=== PATIENT | female | born 1960 | race Caucasian/White ===

== ENCOUNTER 2017-01-19 06:29 | Inpatient (IN) | payer OTHER ==
[2017-01-18 09:57] VITALS: BMI 28.2; BMI 30.2
[2017-01-19] VITALS (30 sets, daily range): BP systolic 92–120; BP diastolic 55–76; PULSE 56–100; RESP 13–22; Ht 167.6 cm; Wt 75.0 kg
[~2017-01-19] VITALS: Ht 167.6 cm; Wt 75.0 kg
[2017-01-19] MEDS ORDERED: FENTAnyl 50 MCG/ML VIAL IV PRN ×2 (06:30)
[2017-01-19] MEDS ORDERED: MEPERIDINE 25 MG INJ IV PRN (06:30)
[2017-01-19] MEDS ORDERED: morphine (1 MG/ML) 10ML SYRINGE IV PRN ×3 (06:30)
[2017-01-19] MEDS ORDERED: HYDROmorphONE (0.2 MG/ML) 10ML SYG IV PRN ×2 (06:30)
[2017-01-19] MEDS ORDERED: EPHEDrine SULFATE 50 MG/5 ML SYG IV PRN (06:30)
[2017-01-19] MEDS ORDERED: ATROPINE 1 MG/10 ML SYRINGE IV PRN (06:30)
[2017-01-19] MEDS ORDERED: DIPHENHYDRAMINE 50 MG INJ IV PRN (06:30)
[2017-01-19] MEDS ORDERED: LABETALOL HCL 20MG INJ IV PRN (06:30)
[2017-01-19] MEDS ORDERED: ONDANSETRON 4 MG INJ IV PRN (06:30)
[2017-01-19] MEDS ORDERED: OXYCODONE/ACETAMINOPHEN (5/325) TAB PO PRN ×2 (06:30)
[2017-01-19] MEDS ORDERED: hydrALAzine 20 MG INJ IV PRN (06:30)
[2017-01-19] MEDS ORDERED: MIDAZOLAM 1 MG/ML 2 ML INJ IV PRN (06:30)
[2017-01-19] MEDS ORDERED: SUGAMMADEX SODIUM 200 MG/2 ML VIAL IV ONE (07:00)
[2017-01-19] MEDS ORDERED: ATOR10TA65 PO (07:20)
[2017-01-19] MEDS ORDERED: GLYCOPYRROLATE 1 MG INJ ONE (08:39)
[2017-01-19] MEDS ORDERED: MIDAZOLAM 1 MG/ML 2 ML INJ ONE (08:39)
[2017-01-19] MEDS ORDERED: FENTAnyl 50 MCG/ML VIAL ONE ×2 (08:39→08:54)
[2017-01-19] MEDS ORDERED: ROCURONIUM 50 MG INJ ONE (08:39)
[2017-01-19] MEDS ORDERED: NEOSTIGMINE 3 MG/3 ML SYRINGE ONE (08:39)
[2017-01-19] MEDS ORDERED: LIDOCAINE 2% (SDV) 5 ML INJ ONE (08:39)
[2017-01-19] MEDS ORDERED: PROPOFOL 20 ML ONE (08:39)
[2017-01-19] MEDS ORDERED: ONDANSETRON 4 MG INJ ONE (08:40)
[2017-01-19] MEDS ORDERED: DEXAMETHASONE 4 MG/ML 1 ML INJ ONE (08:40)
[2017-01-19] MEDS ORDERED: BUPIVACAINE 0.5%/EPI (SDV) 10 ML INJ ONE (08:50)
[2017-01-19] MEDS ORDERED: BUPIVACAINE 0.25% (MPF) 30 ML INJ ONE (08:50)
[2017-01-19] MEDS ORDERED: THROMBIN 5000 UNIT VIAL ONE (08:50)
[2017-01-19] MEDS ORDERED: POLYMYXIN/BACITRACIN 1L IRRIG ONE (08:51)
[2017-01-19] MEDS ORDERED: CA CHLORIDE 10% 10 ML SYRINGE ONE (08:51)
[2017-01-19] MEDS ORDERED: IOHEXOL 300MG/ML 30 ML BTL ONE (08:57)
--- NOTE | 2017-01-19 09:39 | HPN ---
Date/Time of Note Date/Time of Note DATE: 01/19/17 TIME: 09:39 Interval H&P Admission Note Pt. seen H&P reviewed: No system changes GRACE CASTILLO MD Jan 19, 2017 09:39
[2017-01-19] MEDS ORDERED: CEFAZOLIN 1 GM/50 ML (PMX) 50 ML IVPB SCH (10:00)
[2017-01-19] MEDS ORDERED: DIPHENHYDRAMINE 25 MG CAP PO PRN (10:00)
[2017-01-19] MEDS ORDERED: HYDROCODONE/APAP (5/325) TAB PO PRN (10:00)
[2017-01-19] MEDS ORDERED: NALOXONE (0.4 MG/ML) INJ IV PRN (10:00)
[2017-01-19] MEDS ORDERED: MAGNESIUM HYDROXIDE 30ML CUP PO PRN (10:00)
[2017-01-19] MEDS ORDERED: HYDROmorphONE 1 MG/ML SYG IV PRN (10:00)
[2017-01-19] MEDS ORDERED: ACETAMINOPHEN 325 MG TAB PO PRN (10:00)
[2017-01-19] MEDS ORDERED: AL HYDROX/MG HYDROX/SIMETH 30 ML CUP PO PRN (10:00)
[2017-01-19] MEDS ORDERED: CEPASTAT LOZENGE MT PRN (10:00)
--- NOTE | 2017-01-19 12:06 | SIPON ---
Date/Time of Note Date/Time of Note DATE: 01/19/17 TIME: 12:02 Operative Report Preoperative Diagnosis right L5-S1 disc herniation Postoperative Diagnosis right L5-S1 disc herniation with incidental dural tear on the anterior aspect of the dural sac. Operation/Procedure Performed Right L5-S1 discectomy, dural tear augmentation Surgeon: GRACE CASTILLO MD Anesthesia Type: general Estimated Blood Loss: minimal Transfusion Required: no Specimens L5-S1 disc material Grafts/Implants [place] amniotic barrier, duragen, duraseal Complications Incidental dural tear encountered. Likely due to adhesion of disc herniation to the anterior aspect of the thecal sac. Was encountered during procedure. Augmented repair with duragen and duraseal. Location not amenable to suture repair. GRACE CASTILLO MD Jan 19, 2017 12:06
[2017-01-19] MEDS: HYDROmorphONE (0.2 MG/ML) 10ML SYG IV PRN ×3 (12:10→13:11)
[2017-01-19] MEDS: CEFAZOLIN 1 GM/50 ML (PMX) 50 ML IVPB SCH ×2 (12:47→21:51)
--- NOTE | 2017-01-19 13:58 | RADRPT ---
PROCEDURE: Intraoperative imaging of the lumbar spine with fluoroscopy. CLINICAL INDICATION: Back pain. Intraoperative. TECHNIQUE: 3 images of the lumbar spine were obtained in the operating room with an image intensif ier. No radiologist was in attendance. Fluoroscopy time is 4.8 seconds. COMPARISON: No prior study is available for comparison. FINDINGS: For the purposes of this report, the last apparent true disc level is considered to be L5-S1. Based on this, the posterior surgical instrument is present overlying the L5-S1 level. IMPRESSION: 1. Intraoperative imaging of the lumbar spine. RPTAT: QQ .Aric Hernandez MD, MD Date Time Electronically viewed and signed by .Aric Hernandez MD, on 01/19/2017 13:58 .R/
--- NOTE | 2017-01-19 14:25 | OPR ---
DATE OF OPERATION: 01/19/2017 PREOPERATIVE DIAGNOSIS: Right L5-S1 disk herniation. POSTOPERATIVE DIAGNOSES: 1. Right L5-S1 disk herniation. 2. Adhesion to the thecal sac with dural leak. OPERATION PERFORMED: 1. Right L5 laminectomy. 2. Right S1 laminectomy. 3. Right L5-S1 facet osteotomy. 4. Removal of extruded fragment underlying the thecal sac at the L5-S1 level. 5. Removal of disk material from within the disk space at the right L5-S1 level. 6. Decompression of the exiting L5 and traversing S1 nerve root. 7. Use of intraoperative microscope for microdissection. 8. Incidental dural leak found during the procedure due to adhesion of the extruded disk fragment to the anterior surface of the thecal sac. 9. Augmentation repair of the dural tear with DuraGen and DuraSeal to a watertight seal with Valsalva maneuver to evaluate. 10. Suture repair not possible due to the location of the encountered leak on the undersurface of the thecal sac from the surgical exposure. 11. Use of intraoperative neural monitoring for evaluation of nerve root function during the entire surgical procedure using EMGs, SSEPs and MEPs from upper and lower extremities, as well as spinal cord monitoring. 12. Use of intraoperative fluoroscopy for localization. 13. Place of Nu[place]ield amniotic barrier, as well as DuraGen and DuraSeal. 14. Copious irrigation of the surgical site. 15. Cosmetic wound closure. SURGEON: Tonny Lane MD. ANESTHESIA: General. ANESTHESIOLOGIST: Dr. Clements. ESTIMATED BLOOD LOSS: Minimal. INFORMATION SYSTEMS SECURITY OFFICER: None. TRANSFUSION: None. SPECIMENS: L5-S1 disk material. GRAFTS OR IMPLANTS: Include Nu[place]ield amniotic barrier, DuraGen and DuraSeal. COMPLICATIONS: Incidental tear encountered during surgical procedure, likely due to adhesion of disk herniation. Extruded fragment to the anterior aspect to the thecal sac was encountered during the procedure and augmented repair with DuraGen and DuraSeal to a watertight seal and noted that location was not amenable to suture repair due to the surface of the leak apparently being on the anterior aspect of the thecal sac, very difficult to address from the exposure from the posterior aspect. This complication was discussed with the family. They are aware that this is a likely complication risk that may occur with a procedure such as this. Patient will be evaluated for photophobia and headaches, as well as wound evaluation. Postoperatively in the recovery room, patient did have full motor and sensory in bilateral lower extremities with good strength symmetric to the bilateral lower extremities with no complaints of headaches or photophobia. BRIEF PREOPERATIVE HISTORY: The patient is a healthy 56-year-old female who presented with significant symptoms of right lower extremity radiating pain, which was not improved with conservative modalities. Patient was evaluated with a new MRI demonstrating a large disk fragment at the right L5-S1 level and indicated for surgical procedure as stated above. The patient understood the risks, benefits and alternatives to surgical procedure, as well as the risks for re-herniation, CSF leak, damage to nerves, vessels, infection and anesthesia risks. Patient understood these risks and consented to surgery as stated above. OPERATIVE PROCEDURE: Patient brought to the operating room, placed under anesthesia by Dr. Clements and given 2 g of Ancef. Patient was then turned prone on the Max frame and all bony prominences were appropriately padded and the lumbar spine prepped and draped in the usual sterile fashion. Two spinal needles were placed and a lateral localizing film verified the L5- S1 level. Once this was done, an incision was made after 0.25 percent Marcaine with epinephrine was injected subcutaneously. Incision measuring approximately 2 cm with a subperiosteal dissection to the L5 lamina and a metal tool was used to locate the proper location of the laminectomy site. Once this was done, we evaluated with the x-ray and verified proper position and started with the surgical procedure by placing a Boss retractor, performing a laminectomy of L5, a laminectomy of S1 on the right side and a facet osteotomy of L5-S1, removing the ligamentum flavum and exposing the thecal sac. Once this was done, we appropriately decompressed and gently retracted the thecal sac medially and noticed an extruded disk fragment underlying the thecal sac, just superior to the disk space of L5-S1. This was gently removed and then a retractor was placed. Upon placing the retractor, noticed clear fluid. This appears to have been secondary to an adhesion to the undersurface of the thecal sac from the disk herniation that may have caused this, as there was no significant placement of any sharp objects within that space that would have thought to cause this type of an injury. Once the CSF leak was controlled with cottonoids within the open laminotomy site to tamponade, and continued with removal of all disk fragments from the disk space, as well as any that could have been causing any compression of nerve roots, leading to her radicular symptoms. We readjusted the CSF leak and asked the anesthesiologist to perform a Valsalva maneuver to 40 mmHg and without any repair or procedures performed on the thecal sac for the dural leak there was no leakage. At this time, I elected that there was no surgical repair possible due to the location of this leak and no definite finding of a dural tear was found, meaning that this was probably well under the surface and difficult to address with a suture repair. Due to that, I elected to put a DuraGen and DuraSeal to augment the CSF leak. This was done after completion of the surgical procedure and copious irrigation removed all loose disk fragments within the disk space. Once completed, I started with our closure with an 0 Vicryl for the fascia, 2-0 Vicryl for subcutaneous skin and running 4-0 Monocryl for subcuticular closure. Patient was awakened and taken to recovery room in stable condition, moving bilateral lower extremities well with no evidence of motor or sensory changes. Patient appeared comfortable in the recovery room while waking up from anesthesia. Evaluation in the recovery room demonstrated no photophobia or headaches. Patient will be evaluated later today for decision on discharge or overnight observation depending on whether she is progressing and if pain is well controlled. Dictated By: Tonny Lane MD /carlos alberto/servando /Document#: [id number]
[2017-01-19] MEDS: HYDROmorphONE 1 MG/ML SYG IV PRN ×2 (18:30→21:40)
[2017-01-19] MEDS: CYCLOBENZAPRINE 10 MG TAB PO PRN (19:41)
[2017-01-19] MEDS: HYDROCODONE/APAP (5/325) TAB PO PRN (23:37)
[2017-01-20] MEDS: HYDROmorphONE 1 MG/ML SYG IV PRN ×6 (01:08→20:34)
[2017-01-20 01:33] VITALS: BP 91/50; RESP 20
[2017-01-20 04:05] VITALS: BP 101/55; PULSE 72
[2017-01-20] MEDS: CEFAZOLIN 1 GM/50 ML (PMX) 50 ML IVPB SCH (05:11)
[2017-01-20 07:19] VITALS: BP 89/55; RESP 18
[2017-01-20] MEDS: HYDROCODONE/APAP (5/325) TAB PO PRN (08:24)
[2017-01-20] MEDS: LACTATED RINGER'S 1,000 ML IV SCH (10:19)
--- NOTE | 2017-01-20 12:08 | RADRPT ---
PROCEDURE: MRI lumbar spine without and with contrast CLINICAL INDICATION: back pain, postoperative TECHNIQUE: An high-resolution MRI of the lumbar spine was performed utilizing the following sequen maxine: Sagittal and axial T1 weighted, sagittal and axial T2 weighted, and sagittal STIR. Additional axial and sagittal post contrast sequences were obtained after the administration of 10 cc of Magnev ist Gadolinium without reported complications. COMPARISON: Correlation lumbar spine x-ray yesterday FINDINGS: No acute vertebral compression fracture. No evidence of a diffuse marrow replacing process. The conus medullaris terminates at L1. T12 - L1: The disk is preserved in height. There is no significant disk protrusion, spinal canal or foraminal stenosis. L1 - L2: The disk is preserved in height. There is no significant disk protrusion, spinal canal or foraminal stenosis. L2 - L3: The disk is preserved in height. There is no significant disk protrusion, spinal canal or foraminal stenosis. L3 - L4: The disk is preserved in height. There is no significant disk protrusion, spinal canal or foraminal stenosis. L4 - L5: The disk is preserved in height. Small disc bulge with narrowing of the lateral recess b ilaterally. No significant spinal canal or foraminal narrowing. L5 - S1: Right laminectomy changes and severe discogenic disease. 4-5 mm right central to right fo raminal disc osteophyte complex combined with a 9 x 26 x 28 mm fluid collection (transverse x chidi posterior x craniocaudal) at the laminectomy site results in effacement of the right lateral recess and impingement of the traversing right S1 nerve. There is also a 3-4 mm left foraminal disc osteoph yte complex. Moderate right and severe left foraminal stenosis and overall mild thecal sac stenosis at this level. Paraspinal soft tissues are unremarkable. IMPRESSION: L5 - S1: Right laminectomy changes and severe discogenic disease. 4-5 mm right central to right for aminal disc osteophyte complex combined with a 9 x 26 x 28 mm fluid collection at the laminectomy si te results in effacement of the right lateral recess and impingement of the traversing right S1 nerv e. There is also a 3-4 mm left foraminal disc osteophyte complex. Moderate right and severe left for aminal stenosis and overall mild thecal sac stenosis at this level. RPTAT: AA .Liam Webber MD, MD Date Time Electronically viewed and signed by .Liam Webber MD, MD on 01/20/2017 12:07 .T/
--- NOTE | 2017-01-20 14:12 | PN ---
Date/Time of Note Date/Time of Note DATE: 01/20/17 TIME: 14:09 Assessment/Plan VTE Prophylaxis VTE Prophylaxis Intervention: SCD's VTE Contraindication Reason: bleeding Lines/Catheters IV Catheter Type (from Nrsg): Saline Lock Urinary Cath still in place: No Assessment/Plan Chief Complaint/Hosp Course s/p Rigth L5-S1 discectomy with incidental dural leak MRI shows fluid collection Laying flat c/o headache pain control Problems: Assessment/Plan CSF leak headache leak protocol - hold PT, lay flat, pain control Will progress as pain improves Patient and aware of intra-op dural leak and MRI findings done today They are aware of the instructions to lay flat for the leak to resolve. Will continue to evaluate and progress based on symptoms. Subjective 24 Hr Interval Summary Additional Comments headache Exam/Review of Systems Vital Signs Vitals Vital Signs Date Time Temp Pulse Resp B/P Pulse Ox O2 Delivery O2 Flow Rate FiO2 01/20/17 07:19 98.3 59 18 89/55 95 01/20/17 04:05 Nasal Cannula 01/19/17 14:10 2.0 Intake and Output 01/19/17 01/19/17 01/20/17 15:00 23:00 07:00 Intake Total 900 ml 530 ml 600 ml Output Total 5 ml 500 ml Balance 895 ml 530 ml 100 ml Exam Head: atraumatic, hematomas, lacerations, normocephalic, other (headache) Results Result Diagram: 01/19/17 0759 Medications Medications Current Medications Acetaminophen/ Hydrocodone Bitart ([place] (5/325)) 1 tab Q4H PRN PO PAIN LEVEL 1 -5; Start 01/19/17 at 10:00 Acetaminophen/ Hydrocodone Bitart ([place] (5/325)) 2 tab Q4H PRN PO PAIN LEVEL 6 -10 Last administered on 01/20/17t 08:24; Admin Dose 2 TAB; Start 01/19/17 at 10 :00 Al Hydrox/Mg Hydrox/Simethicone (Mag-Al Plus) 15 ml Q6H PRN PO CONSTIPATION/ DYSPEPSIA; Start 01/19/17 at 10:00 Magnesium Hydroxide (Milk Of Mag) 30 ml HS PRN PO CONSTIPATION/DYSPEPSIA; Start 01/19/17 at 10:00 Acetaminophen (Tylenol Tab) 650 mg Q4H PRN PO PARRY OR TEMP GREATER THAN 101.3F; Start 01/19/17 at 10:00 Cyclobenzaprine HCl (Flexeril) 5 mg Q8H PRN PO MUSCLE SPASMS Last administered on 01/19/17 19:41; Admin Dose 5 MG; Start 01/19/17 at 10:00 Phenol (Cepastat Lozenge) 1 lozenge PRN PRN MT SORE THROAT; Start 01/19/17 at 10:00 Diphenhydramine HCl (Benadryl) 25 mg Q6H PRN PO ITCHING; Start 01/19/17 at 10: 00 Naloxone HCl (Narcan) 0.2 mg Q2M PRN IV RR 8 BREATHS/MIN OR LESS; Start at 10:00 Hydromorphone HCl 1 mg 1 mg Q3H PRN IV PAIN Last administered on 01/20/17 11: 06; Admin Dose 1 MG; Start 01/19/17 at 15:00 Lactated Ringer's (Lr) 1,000 ml @ 75 mls/hr [id number] IV Last administered on 10:19; Admin Dose 75 MLS/HR; Start 01/20/17 at 10:30 GRACE CASTILLO MD Jan 20, 2017 14:12
[2017-01-20 14:30] VITALS: BP 98/52; RESP 18
[2017-01-20 16:00] VITALS: BP 106/63; PULSE 71
[2017-01-20] MEDS: CYCLOBENZAPRINE 10 MG TAB PO PRN ×2 (17:07→22:08)
[2017-01-20] MEDS: DIAZEPAM 5 MG TAB PO PRN (17:54)
[2017-01-20] MEDS ORDERED: DEXAMETHASONE 4 MG/ML 1 ML INJ IV ONE (18:00)
[2017-01-20 20:10] VITALS: BP 92/57; RESP 18
[2017-01-21] MEDS: DIAZEPAM 5 MG TAB PO PRN ×4 (00:06→22:02)
[2017-01-21] MEDS: LACTATED RINGER'S 1,000 ML IV SCH ×2 (00:06→13:27)
[2017-01-21 00:47] VITALS: BP 99/64; RESP 18
[2017-01-21] MEDS: HYDROmorphONE 1 MG/ML SYG IV PRN ×6 (03:09→23:50)
[2017-01-21 07:36] VITALS: BP 112/69; RESP 18
[2017-01-21] MEDS: CYCLOBENZAPRINE 10 MG TAB PO PRN (09:28)
[2017-01-21] MEDS: HYDROCODONE/APAP (5/325) TAB PO PRN ×2 (14:01→20:08)
--- NOTE | 2017-01-21 14:12 | PN ---
Date/Time of Note Date/Time of Note DATE: 01/21/17 TIME: 14:02 Assessment/Plan VTE Prophylaxis VTE Prophylaxis Intervention: anti-embolic stocking, SCD's VTE Contraindication Reason: bleeding Lines/Catheters IV Catheter Type (from Nrsg): Peripheral IV Urinary Cath still in place: No Assessment/Plan Chief Complaint/Hosp Course s/p Rigth L5-S1 discectomy with incidental dural leak MRI shows fluid collection Laying flat c/o headache pain control Problems: Assessment/Plan headache improving, 3-4/10 right leg radicular pain: but motor/sensory 5/5 and equal to contralateral side. MRI showed fluid collection from CSF fluid leak patient may also have some aspect of smoking withdrawal contributing to headaches in addition to csf leak wound dressing CDI Plan: recommend advancing HOB to 45 for a few hours and then to chair. if headache is still controlled, then PT encourage [place], Dilaudid prn, valium/flexeril Plan is to start PT tomorrow if doing better. Possible home DC on Tuesday if continues to do well. Cont'd Hospitalization Reason: recovering with CSF fluid leak and has not tolerated PT for ambulation yet. Subjective 24 Hr Interval Summary Additional Comments doing better. Headache improving. right leg pain and back pain Exam/Review of Systems Vital Signs Vitals Vital Signs Date Time Temp Pulse Resp B/P Pulse Ox O2 Delivery O2 Flow Rate FiO2 01/21/17 07:36 97.9 57 18 112/69 98 01/20/17 16:00 Nasal Cannula 01/19/17 14:10 2.0 Intake and Output 01/20/17 01/20/17 01/21/17 15:00 23:00 07:00 Intake Total 1390 ml 1525 ml Output Total 700 ml Balance 1390 ml 825 ml Results Result Diagram: 01/19/17 0759 Medications Medications Current Medications Acetaminophen/ Hydrocodone Bitart ([place] (5/325)) 1 tab Q4H PRN PO PAIN LEVEL 1 -5; Start 01/19/17 at 10:00 Acetaminophen/ Hydrocodone Bitart ([place] (5/325)) 2 tab Q4H PRN PO PAIN LEVEL 6 -10 Last administered on 01/21/17t 14:01; Admin Dose 2 TAB; Start 01/19/17 at 10 :00 Al Hydrox/Mg Hydrox/Simethicone (Mag-Al Plus) 15 ml Q6H PRN PO CONSTIPATION/ DYSPEPSIA Last administered on 01/21/17 09:28; Admin Dose 15 ML; Start at 10:00 Magnesium Hydroxide (Milk Of Mag) 30 ml HS PRN PO CONSTIPATION/DYSPEPSIA; Start 01/19/17 at 10:00 Acetaminophen (Tylenol Tab) 650 mg Q4H PRN PO PARRY OR TEMP GREATER THAN 101.3F; Start 01/19/17 at 10:00 Phenol (Cepastat Lozenge) 1 lozenge PRN PRN MT SORE THROAT; Start 01/19/17 at 10:00 Diphenhydramine HCl (Benadryl) 25 mg Q6H PRN PO ITCHING; Start 01/19/17 at 10: 00 Naloxone HCl (Narcan) 0.2 mg Q2M PRN IV RR 8 BREATHS/MIN OR LESS; Start at 10:00 Hydromorphone HCl 1 mg 1 mg Q3H PRN IV PAIN Last administered on 01/21/17 11: 10; Admin Dose 1 MG; Start 01/19/17 at 15:00 Lactated Ringer's (Lr) 1,000 ml @ 75 mls/hr [id number] IV Last administered on 13:27; Admin Dose 75 MLS/HR; Start 01/20/17 at 10:30 Cyclobenzaprine HCl (Flexeril) 10 mg Q8H PRN PO MUSCLE SPASMS Last administered on 01/21/17 09:28; Admin Dose 10 MG; Start 01/20/17 at 18:00 Diazepam (Valium) 5 mg Q6H PRN PO MUSCLE SPASMS Last administered on 01/21/17 13:26; Admin Dose 5 MG; Start 01/20/17 at 18:00 GRACE CASTILLO MD Jan 21, 2017 14:12
[2017-01-21 14:50] LABS: BASOPHIL # 0.1 10^3/ul (0.0-0.1); BASOPHILS % 0.5 % (0.0-2.0); EOSINOPHILS # 0.1 10^3/ul (0.0-0.5); EOSINOPHILS % 1.1 % (0.0-7.0); HEMATOCRIT 33.9 % (37.0-47.0); HEMOGLOBIN 11.8 g/dl (12.0-16.0); LYMPHOCYTES # 3.6 10^3/ul (0.8-2.9); LYMPHOCYTES % 34.6 % (15.0-51.0); MEAN CORPUSCULAR HGB CONC 34.8 g/dl (32.0-37.0); MEAN PLATELET VOLUME 9.1 fl (7.4-10.4); MONOCYTE # 0.6 10^3/ul (0.3-0.9); NEUTROPHIL # 5.9 10^3/ul (1.6-7.5); NEUTROPHILS % 57.4 % (39.0-77.0); PLATELET COUNT 225 10^3/UL (140-415); RED BLOOD COUNT 3.81 10^6/ul (4.20-5.40); RED CELL DISTRIBUTION WIDTH 12.7 % (11.5-14.5); WHITE BLOOD COUNT 10.3 10^3/ul (4.8-10.8)
[2017-01-21] MEDS: ATORVASTATIN 10 MG TAB PO SCH (20:09)
[2017-01-21 20:48] VITALS: BP 98/54; RESP 19
[2017-01-22 02:00] VITALS: BP 103/60; PULSE 70
[2017-01-22] MEDS: LACTATED RINGER'S 1,000 ML IV SCH ×2 (02:30→15:50)
[2017-01-22] MEDS: HYDROmorphONE 1 MG/ML SYG IV PRN ×4 (05:53→23:33)
[2017-01-22 07:55] VITALS: BP 96/54; RESP 15
[2017-01-22] MEDS: DIAZEPAM 5 MG TAB PO PRN ×3 (08:26→23:33)
[2017-01-22] MEDS: HYDROCODONE/APAP (5/325) TAB PO PRN ×3 (09:43→18:42)
[2017-01-22] MEDS: CYCLOBENZAPRINE 10 MG TAB PO PRN ×2 (11:51→20:24)
--- NOTE | 2017-01-22 12:13 | PN ---
Date/Time of Note Date/Time of Note DATE: 01/22/17 TIME: 12:10 Assessment/Plan VTE Prophylaxis VTE Prophylaxis Intervention: ambulation VTE Contraindication Reason: bleeding Lines/Catheters IV Catheter Type (from Nrsg): Peripheral IV Urinary Cath still in place: No Assessment/Plan Chief Complaint/Hosp Course s/p Rigth L5-S1 discectomy with incidental dural leak MRI shows fluid collection Laying flat c/o headache pain control Problems: Assessment/Plan doing much better, no headache wound CDI Right leg radiculopathy present but normal motor and sensory ambulated with PT encourage PO pain meds instead of IV Dilaudid. Plan to DC home tomorrow Adding Gabapentin to regimen due to radiculopathy Discussed plan with patient and . In good spirits and provided instructions for discharge Exam/Review of Systems Vital Signs Vitals Vital Signs Date Time Temp Pulse Resp B/P Pulse Ox O2 Delivery O2 Flow Rate FiO2 01/22/17 07:55 98.0 63 15 96/54 100 01/22/17 02:00 Room Air 01/19/17 14:10 2.0 Intake and Output 01/21/17 01/21/17 01/22/17 15:00 23:00 07:00 Intake Total 875 ml 1320 ml 1420 ml Output Total 1800 ml 1400 ml Balance 875 ml -480 ml 20 ml Results Result Diagram: 01/21/17 1443 01/19/17 0759 Results 24 hrs Laboratory Tests Test 01/21/17 14:43 White Blood Count 10.3 Red Blood Count 3.81 L Hemoglobin 11.8 L Hematocrit 33.9 L Mean Corpuscular Volume 89.0 Mean Corpuscular Hemoglobin 31.0 Mean Corpuscular Hemoglobin Concent 34.8 Red Cell Distribution Width 12.7 Platelet Count 225 Mean Platelet Volume 9.1 Neutrophils % 57.4 Lymphocytes % 34.6 Monocytes % 6.0 Eosinophils % 1.1 Basophils % 0.5 Nucleated Red Blood Cells % 0.0 Neutrophils # 5.9 Lymphocytes # 3.6 H Monocytes # 0.6 Eosinophils # 0.1 Basophils # 0.1 Nucleated Red Blood Cells # 0.0 Medications Medications Current Medications Acetaminophen/ Hydrocodone Bitart ([place] (5/325)) 1 tab Q4H PRN PO PAIN LEVEL 1 -5; Start 01/19/17 at 10:00 Acetaminophen/ Hydrocodone Bitart ([place] (5/325)) 2 tab Q4H PRN PO PAIN LEVEL 6 -10 Last administered on 01/22/17 09:43; Admin Dose 2 TAB; Start 01/19/17 at 10 :00 Al Hydrox/Mg Hydrox/Simethicone (Mag-Al Plus) 15 ml Q6H PRN PO CONSTIPATION/ DYSPEPSIA Last administered on 01/21/17 09:28; Admin Dose 15 ML; Start at 10:00 Magnesium Hydroxide (Milk Of Mag) 30 ml HS PRN PO CONSTIPATION/DYSPEPSIA; Start 01/19/17 at 10:00 Acetaminophen (Tylenol Tab) 650 mg Q4H PRN PO PARRY OR TEMP GREATER THAN 101.3F Last administered on 01/22/17 08:34; Admin Dose 650 MG; Start 01/19/17 at 10:00 Phenol (Cepastat Lozenge) 1 lozenge PRN PRN MT SORE THROAT; Start 01/19/17 at 10:00 Diphenhydramine HCl (Benadryl) 25 mg Q6H PRN PO ITCHING; Start 01/19/17 at 10: 00 Naloxone HCl (Narcan) 0.2 mg Q2M PRN IV RR 8 BREATHS/MIN OR LESS; Start at 10:00 Hydromorphone HCl 1 mg 1 mg Q3H PRN IV PAIN Last administered on 01/22/17 05: 53; Admin Dose 1 MG; Start 01/19/17 at 15:00 Lactated Ringer's (Lr) 1,000 ml @ 75 mls/hr [id number] IV Last administered on 13:27; Admin Dose 75 MLS/HR; Start 01/20/17 at 10:30 Cyclobenzaprine HCl (Flexeril) 10 mg Q8H PRN PO MUSCLE SPASMS Last administered on 01/22/17 11:51; Admin Dose 10 MG; Start 01/20/17 at 18:00 Diazepam (Valium) 5 mg Q6H PRN PO MUSCLE SPASMS Last administered on 01/22/17 08:26; Admin Dose 5 MG; Start 01/20/17 at 18:00 Atorvastatin Calcium (Lipitor) 10 mg HS PO Last administered on 9/15/17at 20:09 ; Admin Dose 10 MG; Start 01/21/17 at 21:00 GRACE CASTILLO MD Jan 22, 2017 12:13
[2017-01-22] MEDS ORDERED: GABA100C14 PO (12:19)
[2017-01-22] MEDS ORDERED: CYCL-319 PO (12:19)
[2017-01-22] MEDS ORDERED: DIAZ5TAB4 PO (12:19)
[2017-01-22] MEDS ORDERED: HYDR-3498 PO (12:19)
--- NOTE | 2017-01-22 12:23 | PDOCDIS ---
Discharge Instructions DIAGNOSIS Discharge Diagnosis s/p L5-S1 discedctomy with incidental dural leak. CONDITION Patient Condition: Good HOME CARE INSTRUCTIONS: Diet Instructions: Regular ACTIVITY: Activity Restrictions: Slowly Increase Activity Do not Drive Do not operate Machinery Activity Restrictions Comment: no bending/lifting/twisting. may shower. no soaking in water. walk daily FOLLOW UP/APPOINTMENTS Follow-up Plan Office will call patient tuesday for office appt GRACE CASTILLO MD Jan 22, 2017 12:23
--- NOTE | 2017-01-22 12:25 | DS ---
Date/Time of Note Date/Time of Note DATE: 01/22/17 TIME: 12:23 Discharge Summary Admission/Discharge Info Admit Date/Time Jan 19, 2017 at 13:50 Discharge Date/Time Discharge Diagnosis s/p L5-S1 discedctomy with incidental dural leak. Patient Condition: Good Hospital Course s/p Rigth L5-S1 discectomy with incidental dural leak. PAtient and aware. MRI shows fluid collection Laying flat c/o headache, but resolved pain control progressed with PT and pain control DC with [place], flexeril, valium, and gabapentin Home Meds Reported Medications Atorvastatin Calcium (Atorvastatin Calcium) 10 Mg Tablet, 10 MG PO QHS, #30 TAB 01/19/17 Follow-up Plan Office will call patient tuesday for office appt Primary Care Provider Vince Ryan Time spent on discharge: > 30 minutes Pending Labs Laboratory Tests Test 01/21/17 14:43 White Blood Count 10.310^3/ul (4.8-10.8) Red Blood Count 3.8110^6/ul (4.20-5.40) Hemoglobin 11.8g/dl (12.0-16.0) Hematocrit 33.9% (37.0-47.0) Mean Corpuscular Volume 89.0fl (82.0-101.0) Mean Corpuscular Hemoglobin 31.0pg (29.0-33.0) Mean Corpuscular Hemoglobin Concent 34.8g/dl (32.0-37.0) Red Cell Distribution Width 12.7% (11.5-14.5) Platelet Count 18053^3/UL (140-415) Mean Platelet Volume 9.1fl (7.4-10.4) Neutrophils % 57.4% (39.0-77.0) Lymphocytes % 34.6% (15.0-51.0) Monocytes % 6.0% (0.0-11.0) Eosinophils % 1.1% (0.0-7.0) Basophils % 0.5% (0.0-2.0) Nucleated Red Blood Cells % 0.0/100WBC (0.0-0.0) Neutrophils # 5.910^3/ul (1.6-7.5) Lymphocytes # 3.610^3/ul (0.8-2.9) Monocytes # 0.610^3/ul (0.3-0.9) Eosinophils # 0.110^3/ul (0.0-0.5) Basophils # 0.110^3/ul (0.0-0.1) Nucleated Red Blood Cells # 0.010^3/ul (0.0-0.0) GRACE CASTILLO MD Jan 22, 2017 12:25
[2017-01-22] MEDS: GABAPENTIN 100 MG CAP PO SCH ×2 (13:54→20:24)
[2017-01-22 14:00] VITALS: BP 103/55; RESP 16
[2017-01-22] MEDS: ATORVASTATIN 10 MG TAB PO SCH (20:24)
[2017-01-22 20:43] VITALS: BP 88/50; RESP 17
[2017-01-23] MEDS: CYCLOBENZAPRINE 10 MG TAB PO PRN ×2 (05:34→13:11)
[2017-01-23] MEDS: HYDROCODONE/APAP (5/325) TAB PO PRN ×2 (08:44→13:12)
[2017-01-23] MEDS: DIAZEPAM 5 MG TAB PO PRN (08:45)
[2017-01-23] MEDS: GABAPENTIN 100 MG CAP PO SCH ×2 (08:46→13:11)
[2017-01-23 09:15] VITALS: BP 86/50; RESP 18
[2017-01-23] MEDS: HYDROmorphONE 1 MG/ML SYG IV PRN (15:10)
== END 2017-01-23 15:55 | disposition home or self-care (01) | DRG 519 ==
LOC: SDS 06:29 → MS1 13:19 → OBSVTOIN 01-22 13:00
PROVIDERS: ADMIT Orthopaedic Surgery Orthopaedic Surgery of the Spine; ATTEND Orthopaedic Surgery Orthopaedic Surgery of the Spine
PROC: 0SB40ZZ Excision of Lumbosacral Disc, Open Approach (ICD-10-PCS; 2017-01-19)
PROC: 00UT0JZ Supplement Spinal Meninges with Synthetic Substitute, Open Approach (ICD-10-PCS; 2017-01-19)
PROC: 01NB0ZZ Release Lumbar Nerve, Open Approach (ICD-10-PCS; 2017-01-19)
PROC: 0QB00ZZ Excision of Lumbar Vertebra, Open Approach (ICD-10-PCS; principal; 2017-01-19 09:00)
DX: M51.27 Other intervertebral disc displacement, lumbosacral region (principal); G96.11 Dural tear; R51 Headache
CPT/HCPCS: 72100; 72158; 84132; 84703; 85025; 86850; 86900; 86901; 86999; 88304; 97116; 97161; 97530; G0378; J0690; J1100; J1170; J2250; J2405; J2710; J3010; J7120; Q9967; V2790

== ENCOUNTER 2017-02-21 19:06 | Inpatient (IN) | payer OTHER ==
[~2017-02-21] VITALS: Ht 167.6 cm; Wt 80.3 kg
[~2017-02-21 19:06] MED LIST: ATOR10TA65 PO; CYCL-319 PO; DIAZ5TAB4 PO; GABA100C14 PO; HYDR-3498 PO
[2017-02-21] MEDS ORDERED: HYDROmorphONE 1 MG/ML SYG IV STA (21:49)
[2017-02-21] MEDS ORDERED: HYDR-902 PO (22:00)
[2017-02-21] MEDS ORDERED: OXYC-279 PO (22:01)
[2017-02-21] MEDS ORDERED: ERGO500037 PO (22:02)
[2017-02-21] MEDS ORDERED: OMEP40CA6 PO (22:03)
--- NOTE | 2017-02-21 22:49 | ERD ---
ER Documentation Chief Complaint Date/Time DATE: 02/21/17 TIME: 22:49 Chief Complaint states sent by surgeon had a back sx a month ago c/o increasing pain HPI 56-year-old female with a history of chronic back pain status post L5-S1 discectomy on January 19 by presenting with severe low back pain that has been going on since 3 days postop and has been progressively worsening. She has right-sided sciatica that is severe, 10 out of 10. She had an MRI done 2 weeks ago which showed that she needs another surgery per her physician. She is currently awaiting authorization for approval of the surgery. She denies any urinary or bowel retention or incontinence. She is on oxycodone at home to help with the pain. Her pain is worse with any type of movement. No fevers or chills. No focal weakness. ROS All systems reviewed and are negative except as per history of present illness. Medications Home Meds Active Scripts Hydromorphone Hcl* (Dilaudid*) 2 Mg Tablet, 2 MG PO Q4H Y for SEVERE PAIN LEVEL 7-10, #20 TAB Prov:ANTIONETTE JENSEN MD 02/21/17 Gabapentin* (Gabapentin*) 100 Mg Capsule, 100 MG PO TID for 10 Days, CAP Prov:GRACE CASTILLO MD 01/22/17 Diazepam* (Diazepam*) 5 Mg Tablet, 5 MG PO Q6H Y for MUSCLE SPASMS for 10 Days, TAB Prov:GRACE CASTILLO MD 01/22/17 Cyclobenzaprine Hcl* (Cyclobenzaprine Hcl*) 10 Mg Tablet, 10 MG PO Q8H Y for MUSCLE SPASMS for 10 Days, TAB Prov:GRACE CASTILLO MD 01/22/17 Reported Medications Omeprazole* (Omeprazole*) 40 Mg Capsule., 40 MG PO DAILY, #30 CAP 02/21/17 Ergocalciferol (Vitamin D2) (VITAMIN D2) 50,000 Unit Capsule, 20324 UNIT PO Q7D , CAP 02/21/17 Oxycodone HCl/Acetaminophen (Percocet 5-325 mg Tablet) 1 Each Tablet, 1 EACH PO DAILY, TAB TAKE 1 OR 2 TABLETS FOR PAIN 02/21/17 Hydrocodone/Acetaminophen ([place] 10-325 Tablet) 1 Each Tablet, 1 EACH PO Q4H, TAB 02/21/17 Atorvastatin Calcium (Atorvastatin Calcium) 10 Mg Tablet, 10 MG PO QHS, #30 TAB 01/19/17 Discontinued Scripts Hydrocodone Bit-Acetaminophen (Hydrocodone Bit-APAP) 5-325MG Tablet, 2 TAB PO Q4H Y for PAIN LEVEL 6-10 for 10 Days, TAB Prov:GRACE CASTILLO MD 01/22/17 Hydrocodone Bit-Acetaminophen (Hydrocodone Bit-APAP) 5-325MG Tablet, 1 TAB PO Q4H Y for PAIN LEVEL 1-5 for 10 Days, TAB Prov:GRACE CASTILLO MD 01/22/17 Allergies Allergies: Coded Allergies: No Known Allergy (Unverified , 02/21/17) PMhx/Soc History of Surgery: Yes (GALL BLADDER REMOVED, CYST REMOVED, S1/L5 surg) Anesthesia Reaction: No Hx Neurological Disorder: No Hx Respiratory Disorders: No Hx Cardiac Disorders: No Hx Psychiatric Problems: No Hx Miscellaneous Medical Probl: Yes Hx Alcohol Use: No Hx Substance Use: No Hx Tobacco Use: Yes (daily) Smoking Status: Current every day smoker FmHx Family History: No diabetes Physical Exam Vitals Vital Signs Date Time Temp Pulse Resp B/P Pulse Ox O2 Delivery O2 Flow Rate FiO2 02/21/17 19:31 98.1 92 18 96/63 97 Physical Exam Const: Nontoxic, appears to be mild distress secondary to pain Head: Atraumatic Eyes: Normal Conjunctiva ENT: Normal External Ears, Nose and Mouth. Neck: Full range of motion..~ No meningismus. Resp: Clear to auscultation bilaterally Cardio: Regular rate and rhythm, no murmurs Abd: Soft, non tender, non distended. Normal bowel sounds Skin: No petechiae or rashes Back: No CVA tenderness. Lumbar midline severe tenderness, no step-offs Ext: No cyanosis, or edema Neur: Awake and alert, oriented 3, cranial nerves intact, strength and sensations intact in all 4 extremities. Positive straight leg raise on the right. Psych: Normal Mood and Affect Results 24 hrs Current Medications Medications (Trade) Dose Ordered Sig/Gisela Route PRN Reason Start Time Stop Time Status Last Admin Dose Admin Hydromorphone HCl (Dilaudid) 1 mg ONCE STAT IV 02/21/17 21:49 02/21/17 21:50 DC 02/21/17 21:49 Ondansetron HCl (Zofran Inj) 4 mg BRIDGE ORDER PRN IV NAUSEA AND/OR VOMITING 02/22/17 00:00 02/22/17 23:59 Acetaminophen (Tylenol Tab) 650 mg ER BRIDGE PRN PO MILD PAIN/FEVER 02/22/17 00:00 02/22/17 23:59 Procedures/MDM Patient is presenting with worsening chronic back pain. Vitals are stable and she is afebrile. I have a low suspicion for epidural abscess or cauda equina. She does not have any neurologic deficits on exam. IV was placed. IV Dilaudid was given. Patient had only minimal pain relief. She does not feel comfortable going home at this time as she has no one to take care of her. She will be admitted for pain control. I tried to contact her surgeon but I never received a call back. Accepting Care Team: Current data and ongoing care discussed. Time: Time of admission Primary Provider: Alvin Kitchen Diagnosis: Primary Impression: Back pain with right-sided sciatica Additional Impression: Uncontrolled pain Condition: ANTIONETTE Miller MD Feb 21, 2017 22:49
[2017-02-21] MEDS ORDERED: HYDR2TAB36 PO (23:00)
[2017-02-22] VITALS (20 sets, daily range): BP systolic 84–108; BP diastolic 48–71; PULSE 52–99; RESP 16–22; TEMP 98.3; Ht 167.6 cm; Wt 80.3 kg
[2017-02-22] MEDS ORDERED: DEXAMETHASONE 10 MG/ML 1 ML INJ IV ONE (00:30)
[2017-02-22] MEDS ORDERED: ONDANSETRON 4 MG INJ IV PRN ×3 (00:30→12:00)
[2017-02-22] MEDS ORDERED: KETOROLAC 30 MG INJ IV PRN ×2 (00:30→12:00)
[2017-02-22] MEDS ORDERED: ACETAMINOPHEN 325 MG TAB PO PRN ×3 (00:30→10:00)
[2017-02-22] MEDS ORDERED: CYCLOBENZAPRINE 10 MG TAB PO ONE (00:30)
[2017-02-22] MEDS: HYDROmorphONE 0.5 MG/0.5 ML SYG IV PRN (00:45)
[2017-02-22] MEDS ORDERED: CYCLOBENZAPRINE 10 MG TAB PO SCH (04:00)
[2017-02-22] MEDS ORDERED: DEXAMETHASONE 10 MG/ML 1 ML INJ IV SCH (04:00)
[2017-02-22] MEDS ORDERED: DEXAMETHASONE 4 MG/ML 1 ML INJ IV SCH (06:00)
[2017-02-22] MEDS ORDERED: PANTOPRAZOLE 40 MG INJ IV SCH (06:00)
--- NOTE | 2017-02-22 06:52 | HP ---
Date/Time of Note Date/Time of Note DATE: 02/22/17 TIME: 06:40 Assessment/Plan VTE Prophylaxis VTE Prophylaxis Intervention: SCD's Lines/Catheters IV [facility]from [facility] Saline Lock Assessment/Plan Chief Complaint/Hosp Course This is a 56-year-old female being admitted to the [facility] for: #1 intractable back pain: Patient is status post L5-S1 discectomy for disc herniation. Patient's symptoms have gotten progressively worse along with disability since the surgery. She apparently had an MRI 2 weeks ago and the patient's surgeon stated that the patient likely will need surgery again. Will need to consult in the a.m. I will hold off on any repeat imaging at this time and defer that to the surgeon. At the current time will provide her pain control with Dilaudid IV. I have also given her a dose of Decadron. Will also give her a one-time dose of Flexeril this time. With Toradol 30 mg IV every 6 hours. Will defer further pain meds to her surgeon. #2 DVT GI prophylaxis: SCDs, acid surendra further treatment strategy will be implemented as per the clinical course Problems: HPI/ROS Admit Date/Time Admit Date/Time Feb 21, 2017 at 23:39 Hx of Present Illness Chief complaint: Severe low back pain 56-year-old female with a history of chronic back pain status post L5-S1 discectomy on January 19 by presenting with severe low back pain that has been progressively worsening. She has right-sided sciatica that is severe, 10 out of 10. She had an MRI done 2 weeks ago which showed that she needs another surgery per her physician. She is currently awaiting authorization for approval of the surgery. She denies any urinary or bowel retention or incontinence. She is on oxycodone at home to help with the pain however currently it is not helping. Her pain is worse with any type of movement. No fevers or chills. No focal weakness. Allergies: NKDA Medications: See DEMI ZAMBRANO Const: As per HPI Eyes : No pain discharge or redness or change in visual acuity ENT: No pain, sore throat, congestion, congestion, dysphagia or discharge Respiratory: No shortness of breath, cough, sputum, wheezing, or pleuritic pain Cardiovascular: No chest pain, palpitation, PND, or edema GI : no change in appetite, abdominal pain, nausea, vomiting, diarrhea, constipation, or change in the color his stool Genitourinary: No dysuria, hematuria, flank pain , discharge or CVA tenderness Musculoskeletal: As per HPI Skin: No rash, bruising or hives Neuro: No headache, dizziness, syncope, seizure, focal weakness Endocrine: No polyuria, polydipsia, temperature intolerance Psych: No hallucination, depression, anxiety or suicidal ideation PMH/Family/Social Past Medical History Right L5-S1 disk herniation. Past Surgical History Right L5-S1 laminectomy. Decompression of the exiting L5 and traversing S1 nerve root. Family History Significant Family History: no pertinent family hx Social History Alcohol Use: none Smoking Status: Current every day smoker Drug Use: none Exam/Review of Systems Vital Signs Vitals Vital Signs Date Time Temp Pulse Resp B/P Pulse Ox O2 Delivery O2 Flow Rate FiO2 02/22/17 02:54 97.5 85 17 99/68 95 Room Air Exam Exam General: Patient is lying in bed in no acute distress HEENT: Atraumatic, normocephalic. The pupils are equal, round and reactive. Extraocular motor are intact Neck: Supple with full range of motion. No rigidity or meningismus Chest: Nontender Lungs: Clear to auscultation bilaterally no crackles rales or wheezing Heart: Normal S1-S2, Regular rhythm and rate. No murmur, S3, or S4 Abdomen: Soft , nontender, nondistended , bowel sounds are present. No guarding no rebound tenderness , No masses or organomegaly. No costovertebral temporal angle mass Extremities: Tenderness to palpation of the right lateral lower extremity near the level of the lateral hip Neurologic: Normal mental status, speech normal, cranial nerves II through XII are intact, motor and sensory are intact, no focal weakness Musculoskeletal: Tenderness to palpation at the level of the lower lumbar spine , tender to palpation of the right lateral lower extremity near the lateral hip Medications Medications Current Medications Ondansetron HCl (Zofran Inj) 4 mg Q6H PRN IV NAUSEA AND/OR VOMITING; Start at 00:30 Acetaminophen (Tylenol Tab) 650 mg Q6H PRN PO PAIN LEVEL 1-3 OR FEVER; Start 02/22/17 at 00:30 Hydromorphone HCl (Dilaudid) 0.5 mg Q4H PRN IV SEVERE PAIN LEVEL 7-10 Last administered on 02/22/17 00:45; Admin Dose 0.5 MG; Start 02/22/17 at 00:30 Pantoprazole (Protonix Iv) 40 mg DAILY@06 IV Last administered on 02/22/17 06 :20; Admin Dose 40 MG; Start 02/22/17 at 06:00 Ketorolac Tromethamine (Toradol) 30 mg Q6H PRN IV PAIN; Start 02/22/17 at 00: 30; Stop 02/23/17 at 00:29 Atorvastatin Calcium (Lipitor) 10 mg QHS PO ; Start 02/22/17 at 21:00 LUCINDA ACEVEDO Feb 22, 2017 06:51 LUCINDA ACEVEDO Feb 22, 2017 06:51
[2017-02-22] MEDS ORDERED: CYCLOBENZAPRINE 10 MG TAB PO PRN ×2 (07:00→10:00)
[2017-02-22 08:41] LABS: BASOPHIL # 0.1 10^3/ul (0.0-0.1); BASOPHILS % 0.6 % (0.0-2.0); EOSINOPHILS # 0.1 10^3/ul (0.0-0.5); EOSINOPHILS % 1.5 % (0.0-7.0); HEMATOCRIT 39.8 % (37.0-47.0); HEMOGLOBIN 13.3 g/dl (12.0-16.0); LYMPHOCYTES # 1.4 10^3/ul (0.8-2.9); LYMPHOCYTES % 15.8 % (15.0-51.0); MEAN CORPUSCULAR HGB CONC 33.4 g/dl (32.0-37.0); MEAN CORPUSCULAR VOLUME 89.6 fl (82.0-101.0); MEAN PLATELET VOLUME 9.9 fl (7.4-10.4); MONOCYTE # 0.1 10^3/ul (0.3-0.9); MONOCYTES % 1.6 % (0.0-11.0); NEUTROPHIL # 7.1 10^3/ul (1.6-7.5); NEUTROPHILS % 80.3 % (39.0-77.0); PLATELET COUNT 259 10^3/UL (140-415); RED BLOOD COUNT 4.44 10^6/ul (4.20-5.40); RED CELL DISTRIBUTION WIDTH 13.3 % (11.5-14.5); WHITE BLOOD COUNT 8.8 10^3/ul (4.8-10.8)
[2017-02-22] MEDS ORDERED: GABAPENTIN 100 MG CAP PO SCH (09:00)
[2017-02-22 09:06] LABS: ALBUMIN 3.8 g/dl (3.3-4.9); ALBUMIN/GLOBULIN RATIO 1.11; BILIRUBIN,INDIRECT 0.2 mg/dl (0-1.1); BILIRUBIN,TOTAL 0.2 mg/dl (0.2-1.3); CREATININE 0.8 mg/dl (0.44-1.00); POTASSIUM 3.9 mmol/L (3.5-5.1); TOTAL PROTEIN 7.2 g/dl (6.1-8.1)
[2017-02-22 09:27] LABS: CHOL/HDL RATIO 3.6 RATIO
[2017-02-22] MEDS ORDERED: BUPIVACAINE 0.25% (MPF) 30 ML INJ ONE ×2 (09:49→12:09)
[2017-02-22] MEDS ORDERED: FENTAnyl 50 MCG/ML VIAL ONE ×2 (09:49→11:15)
--- NOTE | 2017-02-22 09:49 | HP ---
Date/Time of Note Date/Time of Note DATE: 02/22/17 TIME: 09:44 Assessment/Plan VTE Prophylaxis VTE Prophylaxis Intervention: contraindicated (spine surgery, bleeding risk) VTE Contraindication Reason: bleeding Lines/Catheters IV Catheter Type (from Nrsg): Saline Lock Assessment/Plan Chief Complaint/Hosp Course severe recurrent right leg pain s/p right L5-S1 discectomy on 01/19. Problems: Assessment/Plan Admitted through ED due to severe pain and disability Return to OR today for revision discectomy at right L5-S1 and evaluation of CSF leak NPO pain meds hold all medical DVT proph due to spine surgery patient aware of plan and agrees. Discussed procedure and consent signed. HPI/ROS Admit Date/Time Admit Date/Time Feb 21, 2017 at 23:39 Hx of Present Illness Prior history of right L5-S1 microdiscectomy done 01/19 with continued pain. Prior MRI showed recurrent disc herniation and CSF leak encountered at her last procedure. Admitted through ED due to severe pain and disability. Denies N/V/F /C and no headache or photophobia ROS Musculoskeletal: back pain Neurologic: other (right leg pain) PMH/Family/Social Past Surgical History 01/19: right microdiscectomy Family History Significant Family History: no pertinent family hx Social History Alcohol Use: none Smoking Status: Current every day smoker Drug Use: none Exam/Review of Systems Vital Signs Vitals Vital Signs Date Time Temp Pulse Resp B/P Pulse Ox O2 Delivery O2 Flow Rate FiO2 02/22/17 08:13 97.8 70 18 101/64 99 02/22/17 02:54 Room Air Exam Musculoskeletal: muscle weakness, other (right leg pain with +SLR on the right side) Skin: other (wound from prior surgery healed well with no erythema or discharge ) Labs Result Diagram: 02/22/17 0741 02/22/17 0741 Medications Medications Current Medications Ondansetron HCl (Zofran Inj) 4 mg Q6H PRN IV NAUSEA AND/OR VOMITING; Start at 00:30 Acetaminophen (Tylenol Tab) 650 mg Q6H PRN PO PAIN LEVEL 1-3 OR FEVER; Start 02/22/17 at 00:30 Hydromorphone HCl (Dilaudid) 0.5 mg Q4H PRN IV SEVERE PAIN LEVEL 7-10 Last administered on 02/22/17t 00:45; Admin Dose 0.5 MG; Start 02/22/17 at 00:30 Pantoprazole (Protonix Iv) 40 mg DAILY@06 IV Last administered on 02/22/17 06 :20; Admin Dose 40 MG; Start 02/22/17 at 06:00 Ketorolac Tromethamine (Toradol) 30 mg Q6H PRN IV PAIN; Start 02/22/17 at 00: 30; Stop 02/23/17 at 00:29 Atorvastatin Calcium (Lipitor) 10 mg QHS PO ; Start 02/22/17 at 21:00 GRACE CASTILLO MD Feb 22, 2017 09:49
[2017-02-22] MEDS ORDERED: CA CHLORIDE 10% 10 ML SYRINGE ONE (09:50)
[2017-02-22] MEDS ORDERED: POLYMYXIN/BACITRACIN 1L IRRIG ONE (09:50)
[2017-02-22] MEDS ORDERED: NALOXONE (0.4 MG/ML) INJ IV PRN (10:00)
[2017-02-22] MEDS ORDERED: AL HYDROX/MG HYDROX/SIMETH 30 ML CUP PO PRN (10:00)
[2017-02-22] MEDS ORDERED: PROCHLORPERAZINE 10 MG INJ IV PRN (10:00)
[2017-02-22] MEDS ORDERED: DIPHENHYDRAMINE 25 MG CAP PO PRN (10:00)
[2017-02-22] MEDS ORDERED: CEPASTAT LOZENGE MT PRN (10:00)
[2017-02-22] MEDS ORDERED: HYDROmorphONE 0.2 MG/ML PCA IV SCH (10:00)
[2017-02-22] MEDS ORDERED: DIPHENHYDRAMINE 50 MG INJ IV PRN ×2 (10:00→12:00)
[2017-02-22] MEDS ORDERED: DEXAMETHASONE 4 MG/ML 1 ML INJ ONE (10:40)
[2017-02-22] MEDS ORDERED: CEFAZOLIN 1 GM INJ ONE (10:40)
[2017-02-22] MEDS ORDERED: morphine 10 MG INJ ONE (10:40)
[2017-02-22] MEDS ORDERED: PROPOFOL 200 MG INJ ONE (10:40)
[2017-02-22] MEDS ORDERED: ONDANSETRON 4 MG INJ ONE (10:40)
[2017-02-22] MEDS ORDERED: LIDOCAINE 2% (SDV) 5 ML INJ ONE (10:40)
[2017-02-22] MEDS ORDERED: ROCURONIUM 50 MG INJ ONE (10:40)
[2017-02-22] MEDS ORDERED: LABETALOL HCL 20MG INJ ONE (10:44)
[2017-02-22] MEDS ORDERED: IOHEXOL 300MG/ML 30 ML BTL ONE (11:11)
[2017-02-22] MEDS: THROMBIN 5000 UNIT VIAL ONE ×2 (11:30→11:36)
[2017-02-22] MEDS ORDERED: LABETALOL HCL 20MG INJ IV PRN (12:00)
[2017-02-22] MEDS ORDERED: FENTAnyl 50 MCG/ML VIAL IV PRN ×3 (12:00)
[2017-02-22] MEDS ORDERED: MEPERIDINE 25 MG INJ IV PRN (12:00)
[2017-02-22] MEDS ORDERED: HYDROmorphONE (0.2 MG/ML) 10ML SYG IV PRN ×3 (12:00)
[2017-02-22] MEDS ORDERED: METOCLOPRAMIDE 10 MG INJ IV PRN (12:00)
[2017-02-22] MEDS ORDERED: hydrALAzine 20 MG INJ IV PRN (12:00)
[2017-02-22] MEDS ORDERED: EPHEDrine SULFATE 50 MG/5 ML SYG IV PRN (12:00)
--- NOTE | 2017-02-22 12:44 | SIPON ---
Date/Time of Note Date/Time of Note DATE: 02/22/17 TIME: 12:42 Operative Report Preoperative Diagnosis s/p right L5-S1 microdiscectomy with CSF leak on 01/19/2017. Reherniation at Right L5-S1 with recurrent severe right lower extremity radiculopathy Postoperative Diagnosis same Operation/Procedure Performed revision right L5-S1 microdiscectomy Surgeon Tonny Castillo MD media assistant n/a Anesthesia: general Estimated blood loss: minimal Transfusion Required none Specimen none Grafts/Implants none Complications none TONNY CASTILLO MD Feb 22, 2017 12:44
--- NOTE | 2017-02-22 13:51 | OPR ---
DATE OF OPERATION: 02/22/2017 PREOPERATIVE DIAGNOSES: 1. Status post right L5-S1 microdiskectomy done on 01/19/2017 with an incidental CSF leak. 2. Recurrent disk herniation at the right L5-S1 level with severe right lower extremity radiculopat hy. 3. Emergency room admission for severe intractable pain with disability in ambulating and difficult y with control with oral pain medication. POSTOPERATIVE DIAGNOSES: 1. Status post right L5-S1 microdiskectomy done on 01/19/2017 with an incidental CSF leak. 2. Recurrent disk herniation at the right L5-S1 level with severe right lower extremity radiculopat hy. 3. Emergency room admission for severe intractable pain with disability in ambulating and difficult y with control with oral pain medication. OPERATION PERFORMED: 1. Revision right L5 laminectomy. 2. Revision right S1 laminectomy. 3. Revision right L5-S1 facet osteotomy. 4. Removal of disk from the disk space underlying the thecal sac in the traversing and exiting nerv e roots of L5 and S1 respectively. 5. Decompression of exiting L5 and traversing S1 nerve root. 6. Use of intraoperative microscope for microdissection. 7. No CSF leak encountered during the surgical procedure, but evaluation of any continued leak from the prior procedure done on 01/19/2017. Use of intraoperative neuromonitoring for evaluation of ne rve root function during the entire surgical procedure with EMGs, SSEPs meps from upper and lower ex tremities as well as spinal cord monitoring during the entire procedure for 2 hours. 8. Use of intraoperative fluoroscopic localization. 9. Placement of NuShield amniotic barrier on the exposed thecal sac. 10. Copious irrigation the surgical site. 11. Cosmetic wound closure of 2 cm incision. SURGEON: Tonny Lane MD ANESTHESIA: General. ANESTHESIOLOGIST: Dr. Macias ESTIMATED BLOOD LOSS: Minimal. WOOD BOATBUILDER APPRENTICE: None. TRANSFUSION: None. SPECIMENS: None. GRAFTS: Include NuShield amniotic barrier. COMPLICATIONS: None. BRIEF PREOPERATIVE HISTORY: The patient is a healthy 56-year-old female who underwent a microdiskec adan for right L5-S1 disk herniation on 01/19/2017. Patient had an incidental dural leak at the mervin e of the procedure, but otherwise disk was removed from the disk space and appeared to be well decom pressed. Patient subsequently had significant pain that was not improving with copious amounts of o ral analgesics and then obtained and new MRI demonstrating a reherniation. The patient never compla ined of headaches, nausea, vomiting, or photophobia. No evidence of infection from the wound site, and no evidence of motor or sensory changes to the lower extremity, only significant severe pain wit h difficulty ambulating. The patient understood the need for revision diskectomy due to her severe pain and disability and the patient consented to surgery as stated above. DETAILS OF OPERATION: The patient brought to the operating room, placed under anesthesia by Dr. Jesús mims and given 2 grams of Ancef. The patient was then turned prone onto the Max frame and all bony prominences were appropriately padded and the lumbar spine prepped and draped in usual sterile fashi on, and the prior incision line was marked. Once this was done, 0.25% Marcaine with epinephrine was injected subcutaneously and injection through the prior incision site was done and subperiosteal di ssection to the L5 lamina was used and identified the prior laminectomy site. This was done and we evaluated after placing a boss retractor into the open laminotomy site and performed a revision lami nectomy at L5-S1 and a facet osteotomy at L5-S1 and exposed our thecal sac and removed the DuraSeal that was previously placed in the prior surgery, noting no active CSF leak, only disk extruded fragm ents that were continued to cause compression on the exiting and traversing L5 and S1 nerve roots re spectively. At this time, gently retracting the thecal sac medially in order not to cause a new dural tear or re -injure the prior dural leak that appeared to have been sealed off. The patient's disk material was removed from within the disk space as well as evaluating and ensuring proper decompression of the e xiting L5 and traversing S1 nerve roots. Neuro monitoring demonstrated good improvement from a defi cit of the L4 on the right side 20% L5 on the right side 50%, S1 on the right side 60% and the L5 on the left side 20%, S1 on the left side 20%. All returned back to normal and symmetric to contralat eral side. At the conclusion of procedure, we copiously irrigated within the disk space, removed al l loose material as well as in the open laminotomy site and I obtained hemostasis with bipolar caute ry and FloSeal. Once this was done, evaluated again the exiting and traversing nerve roots for prop er decompression and our neuromonitoring with improvement in our signal changes. No deficits were e ncountered at the conclusion of the procedure and all Improvements were noted. We started with our closing procedure after placing an epidural catheter into the epidural space, in jected with 4 mL of 0.25% Marcaine and 100 mcg of fentanyl and removed the catheter and then also pl acing NuShield over the exposed thecal sac and then injecting R platelet-rich plasma for postoperati ve wound healing and hemostasis. At the conclusion of the procedure, the patient was taken to the recovery room. At the conclusion o f the procedure, the patient was moving bilateral lower extremities well and no complaints of headac he. All instrument, sponge counts and needles were correct at the conclusion of the procedure. The anneliese ent will be admitted for postop pain control, physical therapy, antibiotics, and discharged home whe n appropriate. Dictated By: TONNY WHITE/ARIELLA Conf#: [id number] DID#: [id number]
[2017-02-22] MEDS: D5W-0.45 NACL + KCL 20 MEQ 1,000 ML IV SCH ×2 (14:16→20:00)
[2017-02-22] MEDS: CEFAZOLIN 1 GM/50 ML (PMX) 50 ML IVPB SCH (18:08)
[2017-02-22] MEDS: ONDANSETRON 4 MG INJ IV PRN (21:16)
[2017-02-22] MEDS: DOCUSATE SODIUM 100 MG CAP PO SCH (21:21)
[2017-02-22] MEDS: ATORVASTATIN 10 MG TAB PO SCH (21:21)
[2017-02-22] MEDS ORDERED: ACET/BUTAL/CAFF TAB PO ONE (22:30)
[2017-02-23] VITALS (8 sets, daily range): BP systolic 83–100; BP diastolic 50–83; PULSE 66–85; RESP 16–20
[2017-02-23] MEDS: D5W-0.45 NACL + KCL 20 MEQ 1,000 ML IV SCH ×3 (01:12→16:00)
[2017-02-23] MEDS: CEFAZOLIN 1 GM/50 ML (PMX) 50 ML IVPB SCH (02:20)
[2017-02-23] MEDS: PANTOPRAZOLE (EC) 40 MG TAB PO SCH (05:13)
[2017-02-23] MEDS: ONDANSETRON 4 MG INJ IV PRN (05:16)
[2017-02-23] MEDS ORDERED: SOD CHLORIDE 0.9% 500 ML IV ONE (05:30)
[2017-02-23 05:37] LABS: BASOPHILS % 0.1 % (0.0-2.0); EOSINOPHILS % 0.1 % (0.0-7.0); HEMOGLOBIN 11.2 g/dl (12.0-16.0); LYMPHOCYTES % 11.6 % (15.0-51.0); MEAN CORPUSCULAR HEMOGLOBIN 30.8 pg (29.0-33.0); MEAN CORPUSCULAR HGB CONC 33.9 g/dl (32.0-37.0); MEAN CORPUSCULAR VOLUME 90.7 fl (82.0-101.0); MEAN PLATELET VOLUME 9.8 fl (7.4-10.4); MONOCYTE # 0.6 10^3/ul (0.3-0.9); MONOCYTES % 3.5 % (0.0-11.0); NEUTROPHIL # 14.4 10^3/ul (1.6-7.5); NEUTROPHILS % 84.1 % (39.0-77.0); PLATELET COUNT 225 10^3/UL (140-415); RED BLOOD COUNT 3.64 10^6/ul (4.20-5.40); RED CELL DISTRIBUTION WIDTH 13.3 % (11.5-14.5); WHITE BLOOD COUNT 17.1 10^3/ul (4.8-10.8)
[2017-02-23 06:34] LABS: CALCIUM 9.1 mg/dl (8.4-10.2); CREATININE 0.72 mg/dl (0.44-1.00); POTASSIUM 4.5 mmol/L (3.5-5.1)
[2017-02-23] MEDS: DOCUSATE SODIUM 100 MG CAP PO SCH ×2 (09:14→20:39)
[2017-02-23] MEDS ORDERED: HYDROCODONE/APAP (5/325) TAB PO SCH (09:30)
[2017-02-23] MEDS ORDERED: CEFAZOLIN 1 GM/50 ML (PMX) 50 ML IVPB SCH (10:00)
[2017-02-23 11:14] LABS: ADD UMIC NO; UR ASCORBIC ACID NEGATIVE (NEGATIVE); UR BILIRUBIN (Dip) NEGATIVE (NEGATIVE); UR BLOOD (Dip) NEGATIVE (NEGATIVE); UR CLARITY CLEAR (CLEAR); UR COLOR COLORLESS (YELLOW); UR GLUCOSE (Dip) NEGATIVE (NEGATIVE); UR KETONES (Dip) NEGATIVE (NEGATIVE); UR LEUKOCYTE ESTERASE (Dip) NEGATIVE Leu/ul (NEGATIVE); UR NITRITE (Dip) NEGATIVE (NEGATIVE); UR SPECIFIC GRAVITY (Dip) 1.003 (1.003-1.030); UR TOTAL PROTEIN (Dip) NEGATIVE (NEGATIVE); UR UROBILINOGEN (Dip) NEGATIVE (NEGATIVE)
--- NOTE | 2017-02-23 16:18 | PN ---
Date/Time of Note Date/Time of Note DATE: 02/23/17 TIME: 16:15 Assessment/Plan VTE Prophylaxis VTE Prophylaxis Intervention: LMWH Lines/Catheters IV Catheter Type (from Nrsg): Peripheral IV Assessment/Plan Chief Complaint/Hosp Course 56 yo female who had L5-S1 microdiskectomy done on 01/19/2017 which was complicated by an incidental CSF leak and recurrent disk herniation at the right L5-S1 level with severe right lower extremity radiculopathy who is now POD 1 for revision of right L5-S1 microdiscectomy - Pain control - Post op management per neurosurgery - HSQ ppx if ok with neurosurgery - PT/OT Problems: Subjective 24 Hr Interval Summary Free Text/Dictation s/p back surgery yesterday Fairly comfortable but still with some pain, decently controlled Has not walked yet Exam/Review of Systems Vital Signs Vitals Vital Signs Date Time Temp Pulse Resp B/P Pulse Ox O2 Delivery O2 Flow Rate FiO2 02/23/17 15:06 97.8 60 16 99/55 97 02/22/17 23:30 Nasal Cannula 02/22/17 13:35 2.0 Intake and Output 02/22/17 02/22/17 02/23/17 15:00 23:00 07:00 Intake Total 1700 ml 650 ml 1390 ml Output Total 550 ml 200 ml 1700 ml Balance 1150 ml 450 ml -310 ml Exam Constitutional: alert, oriented, well developed Psych: nl mood/affect, no complaints Head: atraumatic, normocephalic Eyes: EOMI, PERRL, nl conjunctiva, nl lids, nl sclera ENMT: nl external ears & nose, nl lips & teeth, nl nasal mucosa & septum Neck: non-tender, supple Respiratory: clear to auscultation, normal air movement Cardiovascular: nl pulses, regular rate and rhythm Gastrointestinal: nl liver, spleen, non-tender, soft Musculoskeletal: nl extremities to inspection, nl gait and stance Extremities: normal pulses Neurological: WELFARE WORKER II-XII intact, nl mental status, nl speech, nl strength Skin: nl turgor, No rash or lesions Lymph: nl lymph nodes Results Result Diagram: 02/23/17 0513 02/23/17 0513 Results 24 hrs Laboratory Tests Test 02/23/17 05:13 02/23/17 10:15 White Blood Count 17.1 #H Red Blood Count 3.64 L Hemoglobin 11.2 L Hematocrit 33.0 L Mean Corpuscular Volume 90.7 Mean Corpuscular Hemoglobin 30.8 Mean Corpuscular Hemoglobin Concent 33.9 Red Cell Distribution Width 13.3 Platelet Count 225 Mean Platelet Volume 9.8 Neutrophils % 84.1 H Lymphocytes % 11.6 L Monocytes % 3.5 Eosinophils % 0.1 Basophils % 0.1 Nucleated Red Blood Cells % 0.0 Neutrophils # 14.4 H Lymphocytes # 2.0 Monocytes # 0.6 Eosinophils # 0.0 Basophils # 0.0 Nucleated Red Blood Cells # 0.0 Sodium Level 143 Potassium Level 4.5 Chloride Level 109 Carbon Dioxide Level 25 Anion Gap 14 Blood Urea Nitrogen 11 Creatinine 0.72 Glucose Level 123 Calcium Level 9.1 Urine Color COLORLESS Urine Clarity CLEAR Urine pH 6.0 Urine Specific [place] 1.003 Urine Ketones NEGATIVE Urine Nitrite NEGATIVE Urine Bilirubin NEGATIVE Urine Urobilinogen NEGATIVE Urine Leukocyte Esterase NEGATIVE Urine Hemoglobin NEGATIVE Urine Glucose NEGATIVE Urine Total Protein NEGATIVE Medications Medications Current Medications Ondansetron HCl (Zofran Inj) 4 mg Q6H PRN IV NAUSEA AND/OR VOMITING; Start at 00:30 Acetaminophen (Tylenol Tab) 650 mg Q6H PRN PO PAIN LEVEL 1-3 OR FEVER Last administered on 02/22/17 18:07; Admin Dose 650 MG; Start 02/22/17 at 00:30 Hydromorphone HCl (Dilaudid) 0.5 mg Q4H PRN IV SEVERE PAIN LEVEL 7-10 Last administered on 02/22/17 00:45; Admin Dose 0.5 MG; Start 02/22/17 at 00:30 Atorvastatin Calcium 10 mg 10 mg QHS PO Last administered on 02/22/17 21:21; Admin Dose 10 MG; Start 02/22/17 at 21:00 Potassium Chloride/Dextrose/ Sod Cl (D5-1/2ns + KCl 20 Meq) 1,000 ml @ 100 mls/ hr Q10H IV Last administered on 02/23/17 01:12; Admin Dose 100 MLS/HR; Start 02/22/17 at 10:00 Acetaminophen/ Hydrocodone Bitart ([place] (5/325)) 1 tab Q4H PRN PO PAIN LEVEL 1 -5; Start 02/23/17 at 10:00 Acetaminophen/ Hydrocodone Bitart ([place] (5/325)) 2 tab Q4H PRN PO PAIN LEVEL 6 -10; Start 02/23/17 at 10:00 Ondansetron HCl (Zofran Inj) 4 mg Q6H PRN IV NAUSEA AND/OR VOMITING Last administered on 02/23/17 05:16; Admin Dose 4 MG; Start 02/22/17 at 10:00 Prochlorperazine (Compazine Inj) 10 mg Q6H PRN IV NAUSEA AND/OR VOMITING; Start 02/22/17 at 10:00 Docusate Sodium (Colace) 100 mg BID PO Last administered on 02/23/17 09:14; Admin Dose 100 MG; Start 02/22/17 at 21:00 Pantoprazole (Protonix Tab) 40 mg DAILY@06 PO Last administered on 02/23/17 05:13; Admin Dose 40 MG; Start 02/23/17 at 06:00 Al Hydrox/Mg Hydrox/Simethicone (Mag-Al Plus) 15 ml Q6H PRN PO CONSTIPATION/ DYSPEPSIA; Start 02/22/17 at 10:00 Acetaminophen (Tylenol Tab) 650 mg Q4H PRN PO PARRY OR TEMP GREATER THAN 101.3F; Start 02/22/17 at 10:00 Cyclobenzaprine HCl (Flexeril) 10 mg TID PRN PO MUSCLE SPASMS; Start 02/22/17 at 10:00 Phenol (Cepastat Lozenge) 1 lozenge PRN PRN MT SORE THROAT; Start 02/22/17 at 10:00 Diphenhydramine HCl (Benadryl) 25 mg Q6H PRN PO ITCHING; Start 02/22/17 at 10: 00 Diphenhydramine HCl (Benadryl) 25 mg Q6H PRN IV ITCHING; Start 02/22/17 at 10: 00 Naloxone HCl (Narcan) 0.2 mg Q2M PRN IV RR 8 BREATHS/MIN OR LESS; Start at 10:00 Hydromorphone HCl (Dilaudid PATIENT PLACEMENT COORDINATOR) PATIENT PLACEMENT COORDINATOR to be started in PACU Q4PCA IV Last administered on 02/22/17 13:22; Admin Dose 6 MG; Start 02/22/17 at 10:00; Status Future Hold Miscellaneous Information 1. Hold PATIENT PLACEMENT COORDINATOR at 1,000... PATIENT PLACEMENT COORDINATOR IV ; Start 02/22/17 at 10 :00 MIRIAN CASTELLANOS MD Feb 23, 2017 16:18
[2017-02-23] MEDS: ATORVASTATIN 10 MG TAB PO SCH (20:39)
[2017-02-23] MEDS: NACL 0.9% 3 ML SYG IV SCH (20:40)
[2017-02-23] MEDS: HYDROmorphONE 0.5 MG/0.5 ML SYG IV PRN (20:40)
[2017-02-23] MEDS ORDERED: DIAZEPAM 5 MG TAB PO ONE (21:30)
[2017-02-24] MEDS: HYDROCODONE/APAP (5/325) TAB PO PRN ×2 (00:35→21:13)
[2017-02-24] MEDS: D5W-0.45 NACL + KCL 20 MEQ 1,000 ML IV SCH ×3 (02:00→22:00)
[2017-02-24 02:09] VITALS: BP 105/57; RESP 20
[2017-02-24] MEDS: HYDROmorphONE 0.5 MG/0.5 ML SYG IV PRN ×2 (04:53→10:08)
[2017-02-24] MEDS: PANTOPRAZOLE (EC) 40 MG TAB PO SCH (05:02)
[2017-02-24] MEDS ORDERED: DEXAMETHASONE 10 MG/ML 1 ML INJ IV ONE (07:30)
--- NOTE | 2017-02-24 07:47 | PN ---
Date/Time of Note Date/Time of Note DATE: 02/24/17 TIME: 07:44 Assessment/Plan VTE Prophylaxis VTE Prophylaxis Intervention: ambulation, anti-embolic stocking, contraindicated (spine surgery and bleeding risk) VTE Contraindication Reason: bleeding Lines/Catheters IV Catheter Type (from Nrsg): Saline Lock Urinary Cath still in place: No Assessment/Plan Chief Complaint/Hosp Course severe recurrent right leg pain s/p right L5-S1 discectomy on 01/19. Problems: Assessment/Plan Some back and right thigh pain Likely inflammatory after surgery and due to prior nerve compression Decadron IV x 1 dose now Start Gabapentin 100mg PO TID Pain control PT/OT Plan DC home today if pain controlled on PO meds. Will need hospitalist to provide DC meds: 1. [place] 5/325, Flexeril 10mg, Gabapentin 100mg PO TID. Exam/Review of Systems Vital Signs Vitals Vital Signs Date Time Temp Pulse Resp B/P Pulse Ox O2 Delivery O2 Flow Rate FiO2 02/24/17 02:09 98.2 71 20 105/57 99 02/22/17 23:30 Nasal Cannula 02/22/17 13:35 2.0 Intake and Output 02/23/17 02/23/17 02/24/17 15:00 23:00 07:00 Intake Total 2150 ml 600 ml Output Total 850 ml 600 ml Balance -850 ml 2150 ml 0 ml Results Result Diagram: 02/23/17 0513 02/23/17512 Results 24 hrs Laboratory Tests Test 02/23/17 10:15 Urine Color COLORLESS Urine Clarity CLEAR Urine pH 6.0 Urine Specific [place] 1.003 Urine Ketones NEGATIVE Urine Nitrite NEGATIVE Urine Bilirubin NEGATIVE Urine Urobilinogen NEGATIVE Urine Leukocyte Esterase NEGATIVE Urine Hemoglobin NEGATIVE Urine Glucose NEGATIVE Urine Total Protein NEGATIVE Medications Medications Current Medications Ondansetron HCl (Zofran Inj) 4 mg Q6H PRN IV NAUSEA AND/OR VOMITING; Start at 00:30 Acetaminophen (Tylenol Tab) 650 mg Q6H PRN PO PAIN LEVEL 1-3 OR FEVER Last administered on 02/22/17 18:07; Admin Dose 650 MG; Start 02/22/17 at 00:30 Hydromorphone HCl (Dilaudid) 0.5 mg Q4H PRN IV SEVERE PAIN LEVEL 7-10 Last administered on 02/24/17 04:53; Admin Dose 0.5 MG; Start 02/22/17 at 00:30 Atorvastatin Calcium 10 mg 10 mg QHS PO Last administered on 02/23/17 20:39; Admin Dose 10 MG; Start 02/22/17 at 21:00 Potassium Chloride/Dextrose/ Sod Cl (D5-1/2ns + KCl 20 Meq) 1,000 ml @ 100 mls/ hr Q10H IV Last administered on 02/23/17 01:12; Admin Dose 100 MLS/HR; Start 02/22/17 at 10:00 Acetaminophen/ Hydrocodone Bitart ([place] (5/325)) 1 tab Q4H PRN PO PAIN LEVEL 1 -5; Start 02/23/17 at 10:00 Acetaminophen/ Hydrocodone Bitart ([place] (5/325)) 2 tab Q4H PRN PO PAIN LEVEL 6 -10 Last administered on 02/24/17 00:35; Admin Dose 2 TAB; Start 02/23/17 at 10:00 Ondansetron HCl (Zofran Inj) 4 mg Q6H PRN IV NAUSEA AND/OR VOMITING Last administered on 02/23/17 05:16; Admin Dose 4 MG; Start 02/22/17 at 10:00 Prochlorperazine (Compazine Inj) 10 mg Q6H PRN IV NAUSEA AND/OR VOMITING; Start 02/22/17 at 10:00 Docusate Sodium (Colace) 100 mg BID PO Last administered on 02/23/17 20:39; Admin Dose 100 MG; Start 02/22/17 at 21:00 Pantoprazole (Protonix Tab) 40 mg DAILY@06 PO Last administered on 02/24/17 05:02; Admin Dose 40 MG; Start 02/23/17 at 06:00 Al Hydrox/Mg Hydrox/Simethicone (Mag-Al Plus) 15 ml Q6H PRN PO CONSTIPATION/ DYSPEPSIA; Start 02/22/17 at 10:00 Acetaminophen (Tylenol Tab) 650 mg Q4H PRN PO PARRY OR TEMP GREATER THAN 101.3F; Start 02/22/17 at 10:00 Cyclobenzaprine HCl (Flexeril) 10 mg TID PRN PO MUSCLE SPASMS; Start 02/22/17 at 10:00 Phenol (Cepastat Lozenge) 1 lozenge PRN PRN MT SORE THROAT; Start 02/22/17 at 10:00 Diphenhydramine HCl (Benadryl) 25 mg Q6H PRN PO ITCHING; Start 02/22/17 at 10: 00 Diphenhydramine HCl (Benadryl) 25 mg Q6H PRN IV ITCHING; Start 02/22/17 at 10: 00 Naloxone HCl (Narcan) 0.2 mg Q2M PRN IV RR 8 BREATHS/MIN OR LESS; Start at 10:00 Hydromorphone HCl (Dilaudid DB2 DBA) DB2 DBA to be started in PACU Q4PCA IV Last administered on 02/22/17t 13:22; Admin Dose 6 MG; Start 02/22/17 at 10:00; Status Future Hold Miscellaneous Information 1. Hold DB2 DBA at 1,000... DB2 DBA IV ; Start 02/22/17 at 10 :00 Gabapentin (Neurontin) 100 mg TID PO ; Start 02/24/17 at 09:00 GRACE CASTILLO MD Feb 24, 2017 07:47
[2017-02-24 08:06] VITALS: BP 100/55; RESP 20
[2017-02-24] MEDS: DOCUSATE SODIUM 100 MG CAP PO SCH ×2 (09:15→20:43)
[2017-02-24] MEDS: GABAPENTIN 100 MG CAP PO SCH ×3 (09:15→20:43)
[2017-02-24] MEDS ORDERED: HYDROmorphONE 1 MG/ML SYG IV STA (12:27)
[2017-02-24 13:26] VITALS: BP 111/68; RESP 18
--- NOTE | 2017-02-24 14:51 | PN ---
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 with severe right lower extremity radiculopathy who is now POD 1 for revision of right L5-S1 microdiscectomy - Pain control, great amoutn of pain requiring IV dilaudid - Further post op management per neurosurgery - HSQ ppx if ok with neurosurgery - PT/OT Problems: Subjective 24 Hr Interval Summary Free Text/Dictation Patient in great amount of pain, equivalent or worse to prior to surgery, crying Requiring IV opiates Exam/Review of Systems Vital Signs Vitals Vital Signs Date Time Temp Pulse Resp B/P Pulse Ox O2 Delivery O2 Flow Rate FiO2 02/24/17 13:26 97.7 64 18 111/68 95 02/22/17 23:30 Nasal Cannula 02/22/17 13:35 2.0 Intake and Output 02/23/17 02/23/17 02/24/17 15:00 23:00 07:00 Intake Total 2150 ml 600 ml Output Total 850 ml 600 ml Balance -850 ml 2150 ml 0 ml Exam Constitutional: alert, oriented, well developed Psych: nl mood/affect, no complaints Head: atraumatic, normocephalic Eyes: EOMI, PERRL, nl conjunctiva, nl lids, nl sclera ENMT: nl external ears & nose, nl lips & teeth, nl nasal mucosa & septum Neck: non-tender, supple Respiratory: clear to auscultation, normal air movement Cardiovascular: nl pulses, regular rate and rhythm Gastrointestinal: nl liver, spleen, non-tender, soft Musculoskeletal: nl extremities to inspection, nl gait and stance Extremities: normal pulses 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, nl mental status, nl speech, nl strength Skin: nl turgor, No rash or lesions Lymph: nl lymph nodes Results Result Diagram: 02/23/17 0513 02/23/17512 Medications Medications Current Medications Ondansetron HCl (Zofran Inj) 4 mg Q6H PRN IV NAUSEA AND/OR VOMITING; Start at 00:30 Acetaminophen (Tylenol Tab) 650 mg Q6H PRN PO PAIN LEVEL 1-3 OR FEVER Last administered on 02/22/17 18:07; Admin Dose 650 MG; Start 02/22/17 at 00:30 Hydromorphone HCl (Dilaudid) 0.5 mg Q4H PRN IV SEVERE PAIN LEVEL 7-10 Last administered on 02/24/17 10:08; Admin Dose 0.5 MG; Start 02/22/17 at 00:30 Atorvastatin Calcium 10 mg 10 mg QHS PO Last administered on 02/23/17 20:39; Admin Dose 10 MG; Start 02/22/17 at 21:00 Potassium Chloride/Dextrose/ Sod Cl (D5-1/2ns + KCl 20 Meq) 1,000 ml @ 100 mls/ hr Q10H IV Last administered on 02/23/17 01:12; Admin Dose 100 MLS/HR; Start 02/22/17 at 10:00 Acetaminophen/ Hydrocodone Bitart ([place] (5/325)) 1 tab Q4H PRN PO PAIN LEVEL 1 -5; Start 02/23/17 at 10:00 Acetaminophen/ Hydrocodone Bitart ([place] (5/325)) 2 tab Q4H PRN PO PAIN LEVEL 6 -10 Last administered on 02/24/17 00:35; Admin Dose 2 TAB; Start 02/23/17 at 10:00 Ondansetron HCl (Zofran Inj) 4 mg Q6H PRN IV NAUSEA AND/OR VOMITING Last administered on 02/23/17 05:16; Admin Dose 4 MG; Start 02/22/17 at 10:00 Prochlorperazine (Compazine Inj) 10 mg Q6H PRN IV NAUSEA AND/OR VOMITING; Start 02/22/17 at 10:00 Docusate Sodium (Colace) 100 mg BID PO Last administered on 02/24/17 09:15; Admin Dose 100 MG; Start 02/22/17 at 21:00 Pantoprazole (Protonix Tab) 40 mg DAILY@06 PO Last administered on 02/24/17 05:02; Admin Dose 40 MG; Start 02/23/17 at 06:00 Al Hydrox/Mg Hydrox/Simethicone (Mag-Al Plus) 15 ml Q6H PRN PO CONSTIPATION/ DYSPEPSIA; Start 02/22/17 at 10:00 Acetaminophen (Tylenol Tab) 650 mg Q4H PRN PO PARRY OR TEMP GREATER THAN 101.3F; Start 02/22/17 at 10:00 Cyclobenzaprine HCl (Flexeril) 10 mg TID PRN PO MUSCLE SPASMS; Start 02/22/17 at 10:00 Phenol (Cepastat Lozenge) 1 lozenge PRN PRN MT SORE THROAT; Start 02/22/17 at 10:00 Diphenhydramine HCl (Benadryl) 25 mg Q6H PRN PO ITCHING; Start 02/22/17 at 10: 00 Diphenhydramine HCl (Benadryl) 25 mg Q6H PRN IV ITCHING; Start 02/22/17 at 10: 00 Naloxone HCl (Narcan) 0.2 mg Q2M PRN IV RR 8 BREATHS/MIN OR LESS; Start at 10:00 Hydromorphone HCl (Dilaudid CABINET BUILDER) CABINET BUILDER to be started in PACU Q4PCA IV Last administered on 02/22/17t 13:22; Admin Dose 6 MG; Start 02/22/17 at 10:00; Status Future Hold Miscellaneous Information 1. Hold CABINET BUILDER at 1,000... CABINET BUILDER IV ; Start 02/22/17 at 10 :00 Gabapentin (Neurontin) 100 mg TID PO Last administered on 02/24/17 12:49; Admin Dose 100 MG; Start 02/24/17 at 09:00 MIRIAN CASTELLANOS MD Feb 24, 2017 14:51
[2017-02-24 20:00] VITALS: BP 110/59; RESP 16
[2017-02-24] MEDS: NACL 0.9% 3 ML SYG IV SCH (20:40)
[2017-02-24] MEDS: ATORVASTATIN 10 MG TAB PO SCH (20:43)
[2017-02-24] MEDS ORDERED: DIAZEPAM 5 MG TAB PO PRN (21:30)
[2017-02-25 02:00] VITALS: BP_SYST 114; BP_SYST 158; BP_DIAS 74; BP_DIAS 75; RESP 16; RESP 18
[2017-02-25] MEDS: PANTOPRAZOLE (EC) 40 MG TAB PO SCH (06:28)
[2017-02-25] MEDS: HYDROCODONE/APAP (5/325) TAB PO PRN ×3 (07:16→13:22)
[2017-02-25 07:54] VITALS: BP 116/76; RESP 20
[2017-02-25] MEDS: D5W-0.45 NACL + KCL 20 MEQ 1,000 ML IV SCH (08:00)
[2017-02-25] MEDS: DOCUSATE SODIUM 100 MG CAP PO SCH (08:27)
[2017-02-25] MEDS: GABAPENTIN 100 MG CAP PO SCH ×2 (08:27→12:29)
[2017-02-25] MEDS ORDERED: HYDR-902 PO (12:15)
[2017-02-25] MEDS ORDERED: IBUP400T22 PO (12:15)
[2017-02-25] MEDS ORDERED: GABA100C14 PO (12:15)
--- NOTE | 2017-02-25 12:17 | PDOCDIS ---
Discharge Instructions DIAGNOSIS Discharge Diagnosis Sciatica CONDITION Patient Condition: Good HOME CARE INSTRUCTIONS: Diet Instructions: RegularSpecial Diet: clear liquid FOLLOW UP/APPOINTMENTS Follow-up Plan Follow up in clinic in the next couple weeks with your neurosurgeon You have been prescribed gabapentin and ibuprofen for pain. Take these as needed, and use opiate medications as a last resort. Talk to your doctor if you are having continued pain MIRIAN CASTELLANOS MD Feb 25, 2017 12:17
--- NOTE | 2017-02-25 12:23 | DS ---
Date/Time of Note Date/Time of Note DATE: 02/25/17 TIME: 12:21 Discharge Summary Admission/Discharge Info Admit Date/Time Feb 24, 2017 at 13:04 Discharge Date/Time Discharge Diagnosis Sciatica Patient Condition: Good Hx of Present Illness Prior history of right L5-S1 microdiscectomy done 01/19 with continued pain. Prior MRI showed recurrent disc herniation and CSF leak encountered at her last procedure. Admitted through ED due to severe pain and disability. 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 She was admitted for repeat surgery. She underwent revision of right L5-S1 microdiscectomy with dura patch placed to CSF leak (see operative report for full details). Followign surgery on POD1 the patient was still in great pain, requiring IV dilaudid. By POD2 the patientf felt much better. She was ambulating around the floor without difficulty. She was discharged home with scripts for gapabentin and Ibuprofen. She will see her neurosurgeon in clinic in the coming weeks Home Meds Active Scripts Ibuprofen* (Ibuprofen*) 400 Mg Tablet, 400 MG PO Q6H Y for PAIN for 30 Days, # 60 TAB Prov:MIRIAN CASTELLANOS MD 02/25/17 Hydrocodone/Acetaminophen ([place] 10-325 Tablet) 1 Each Tablet, 1 EACH PO Q4H for 14 Days, #10 TAB Prov:MIRIAN CASTELLANOS MD 02/25/17 Gabapentin* (Gabapentin*) 100 Mg Capsule, 100 MG PO TID for 10 Days, #30 CAP Prov:MIRIAN CASTELLANOS MD 02/25/17 Cyclobenzaprine Hcl* (Cyclobenzaprine Hcl*) 10 Mg Tablet, 10 MG PO Q8H Y for MUSCLE SPASMS for 10 Days, TAB Prov:GRACE CASTILLO MD 01/22/17 Reported Medications Omeprazole* (Omeprazole*) 40 Mg Capsule., 40 MG PO DAILY, #30 CAP 02/21/17 Atorvastatin Calcium (Atorvastatin Calcium) 10 Mg Tablet, 10 MG PO QHS, #30 TAB 01/19/17 Discontinued Reported Medications Ergocalciferol (Vitamin D2) (VITAMIN D2) 50,000 Unit Capsule, 87298 UNIT PO Q7D , CAP 02/21/17 Oxycodone HCl/Acetaminophen (Perc[place] 5-325 mg Tablet) 1 Each Tablet, 1 EACH PO DAILY, TAB TAKE 1 OR 2 TABLETS FOR PAIN 02/21/17 Discontinued Scripts Hydromorphone Hcl* (Dilaudid*) 2 Mg Tablet, 2 MG PO Q4H Y for SEVERE PAIN LEVEL 7-10, #20 TAB Prov:ANTIONETTE JENSEN MD 02/21/17 Diazepam* (Diazepam*) 5 Mg Tablet, 5 MG PO Q6H Y for MUSCLE SPASMS for 10 Days, TAB Prov:GRACE CASTILLO MD 01/22/17 Hydrocodone Bit-Acetaminophen (Hydrocodone Bit-APAP) 5-325MG Tablet, 2 TAB PO Q4H Y for PAIN LEVEL 6-10 for 10 Days, TAB Prov:GRACE CASTILLO MD 01/22/17 Hydrocodone Bit-Acetaminophen (Hydrocodone Bit-APAP) 5-325MG Tablet, 1 TAB PO Q4H Y for PAIN LEVEL 1-5 for 10 Days, TAB Prov:GRACE CASTILLO MD 01/22/17 Follow-up Plan Follow up in clinic in the next couple weeks with your neurosurgeon You have been prescribed gabapentin and ibuprofen for pain. Take these as needed, and use opiate medications as a last resort. Talk to your doctor if you are having continued pain Primary Care Provider MIRIAN Torres MD Feb 25, 2017 12:23
[2017-02-25 12:55] VITALS: BP 103/65; RESP 20
== END 2017-02-25 13:30 | disposition home or self-care (01) | DRG 520 ==
LOC: E/R 19:06 → MS2 23:39 → OBSVTOIN 02-24 13:04
PROVIDERS: ADMIT Family Medicine; ATTEND Family Medicine
PROC: 01NB0ZZ Release Lumbar Nerve, Open Approach (ICD-10-PCS; 2017-02-22)
PROC: 0SB40ZZ Excision of Lumbosacral Disc, Open Approach (ICD-10-PCS; principal; 2017-02-22 14:30)
DX: M51.17 Intervertebral disc disorders with radiculopathy, lumbosacral region (principal)
CPT/HCPCS: 80048; 80053; 80061; 81003; 83036; 84443; 85025; 86999; 87081; 87086; 96374; 96376; 97116; 97161; 97530; C9113; G0378; J0690; J1100; J1170; J2270; J2405; J3010; J3480; J7040; Q9967; V2790

== ENCOUNTER 2018-01-26 22:42 | Inpatient (IN) | END 2018-01-28 11:55 | disposition home or self-care (01) | DRG 312 ==